=== PATIENT | male | born 1935 | race Caucasian/White ===

== ENCOUNTER 2020-11-24 10:23 | Emergency (ER) | payer MEDICARE, BC ==
[2020-11-24] MEDS ORDERED: Acetaminophen 500 MG Tab PO ONE (14:07)
[2020-11-24] MEDS ORDERED: Doxycycline 100 MG Cap PO ONE (14:07)
[2020-11-24] MEDS ORDERED: Doxycycline 100 MG Cap ONE (15:39)
[2020-11-24] MEDS ORDERED: Acetaminophen 500 MG Tab ONE (15:40)
--- NOTE | 2020-11-24 16:47 | EDM.PDOC ---
ED HPI GENERAL MEDICAL PROBLEM - General Chief Complaint: Bite:Animal, Insect Stated Complaint: TICK BITE FEELS LOUSY Time Seen by Provider: 11/24/20 13:55 Source of Information: Reports: Patient, Family. Denies: Old Records History Limitations: Reports: No Limitations - History of Present Illness INITIAL COMMENTS - FREE TEXT/NARRATIVE: 84 yo [place] presents not feeling well for the past 3 days. During that time he has also noticed R flank pain, very dark urine, and his pulled a small tick off his R posterior shoulder. The tick was attached, but not engorged. He has not had a fever. He does have an itchy red area around where the tick was attached. He is voiding often in smaller amts. Onset: Gradual Onset Date: 11/21/20 Duration: Day(s): (3+), Constant Location: Reports: Generalized Quality: Reports: Dull (R flank) Severity: Mild Improves with: Reports: None Worsens with: Reports: Movement Context: Reports: Other (See HPI). Denies: Trauma Associated Symptoms: Reports: Malaise, Rash (at site of tick attachment only). 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: Reports: Other (see below) (none) - Related Data Allergies Allergy/AdvReac Type Severity Reaction Status Date / Time adhesive tape Allergy Blisters Verified 11/24/20 14:25 iodine Allergy Edema Verified 11/24/20 14:25 Home Meds: Home Meds Aspirin [Low Dose Aspirin EC] 81 mg PO DAILY 11/24/20 [History] Citalopram [Citalopram HBr] 40 mg PO DAILY 11/24/20 [History] Folic Acid 1 mg PO DAILY 11/24/20 [History] Hydroxychloroquine Sulfate 100 mg PO DAILY 11/24/20 [History] Levothyroxine Sodium [Synthroid] 100 mcg PO ACBREAKFAST 11/24/20 [History] Methotrexate 2.5 mg PO WEEKLY 11/24/20 [History] Multivitamin [Multi-Vitamin Daily] 1 tab PO DAILY 11/24/20 [History] Rosuvastatin [Crestor] 20 mg PO BEDTIME 11/24/20 [History] ED ROS GENERAL - Review of Systems Review Of Systems: See Below Constitutional: Reports: No Symptoms, Malaise. Denies: Fever, Chills HEENT: Reports: No Symptoms Respiratory: Reports: No Symptoms Cardiovascular: Reports: No Symptoms GI/Abdominal: Reports: No Symptoms : Reports: Other (dark urine) Musculoskeletal: Reports: Other (R post/lateral chest wall pain) Skin: Reports: Erythema (at site of tick attachment) Neurological: Reports: No Symptoms ED EXAM, ANIMAL BITE - Physical Exam Exam: See Below Exam Limited By: No Limitations General Appearance: Alert, WD/WN, No Apparent Distress Eye Exam: Bilateral Eye: Normal Inspection Ears: Normal External Exam, Normal Canal, Hearing Grossly Normal Nose: Normal Inspection, No Blood Throat/Mouth: Normal Inspection, Normal Lips, Normal Oropharynx, Normal Voice, No Airway Compromise Head: Atraumatic, Normocephalic Neck: Normal Inspection Respiratory/Chest: No Respiratory Distress, Lungs Clear, Normal Breath Sounds, No Accessory Muscle Use Cardiovascular: Regular Rate, Rhythm, No Edema Back Exam: Normal Inspection, Other (R flank area tenderness on palpation(point tenderness without crepitus)) Extremities: Normal Inspection Neurological: Alert, Oriented, CN II-XII Intact, Normal Cognition, No Motor/Sensory Deficits Psychiatric: Normal Affect, Normal Mood Skin Exam: Other (redness without warmth at site of tick bite post R shoulder) Course - Vital Signs Last Recorded V/S: Last Vital Signs Temp 36.2 C 11/24/20 14:15 Pulse 70 11/24/20 14:15 Resp 16 11/24/20 14:15 BP 138/69 11/24/20 14:15 Pulse Ox 97 11/24/20 14:15 - Orders/Labs/Meds Orders: Active Orders 24 hr Category Date Time Status Bladder Scan [RC] ASDIRECTED Care 11/24/20 14:12 Ordered UA W/MICROSCOPIC [URIN] Stat Lab 11/24/20 14:07 Ordered Acetaminophen [Tylenol Extra Strength] Med 11/24/20 14:07 Once 1,000 mg PO ONETIME ONE Doxycycline [Vibramycin] Med 11/24/20 14:07 Once 200 mg PO ONETIME ONE Labs: Laboratory Tests 11/24/20 Range/Units 14:51 Urine Color Yellow (YELLOW) Urine Appearance Clear (CLEAR) Urine pH 6.0 (5.0-8.0) Ur Specific [employer] 1.020 (1.008-1.030) Urine Protein 30 H (NEGATIVE) mg/dL Urine Glucose (UA) Negative (NEGATIVE) mg/dL Urine Ketones Negative (NEGATIVE) mg/dL Urine Occult Blood Trace-intact H (NEGATIVE) Urine Nitrite Negative (NEGATIVE) Urine Bilirubin Negative (NEGATIVE) Urine Urobilinogen 1.0 (0.2-1.0) EU/dL Ur Leukocyte Esterase Negative (NEGATIVE) Urine RBC 0-5 (0-5) Urine WBC 0-5 (0-5) Ur Epithelial Cells Rare Amorphous Sediment Not seen Urine Bacteria Rare Urine Mucus Not seen - Re-Assessments/Exams Free Text/Narrative Re-Assessment/Exam: 11/24/20 15:30 Bladder scan 9 ml Departure - Departure Time of Disposition: 15:35 Disposition: Home, Self-Care 01 Condition: Good Clinical Impression: Rib pain on right side Tick bite Qualifiers: Encounter type: initial encounter Qualified Code(s): W57.XXXA - Bitten or stung by nonvenomous insect and other nonvenomous arthropods, initial encounter - Discharge Information *PRESCRIPTION DRUG MONITORING PROGRAM REVIEWED*: Not Applicable *COPY OF PRESCRIPTION DRUG MONITORING REPORT IN PATIENT VASHTI: Not Applicable Instructions: Tick Bite Information, Adult, [id number] Referrals: PCP,None [Primary Care Provider] - Forms: ED Department Discharge Additional Instructions: Take acetaminophen 1000 mg every 6 hrs as needed. Drink enough fluids so that your urine is light yellow. Recheck as needed. Sepsis Event Note (ED) - Focused Exam Vital Signs: Vital Signs Temp Pulse Resp BP Pulse Ox 11/24/20 14:15 36.2 C 70 16 138/69 97 11/24/20 13:51 36.2 C 70 16 138/69 97 - My Orders Last 24 Hours: My Active Orders 11/24/20 14:07 UA W/MICROSCOPIC [URIN] Stat Acetaminophen [Tylenol Extra Strength] 1,000 mg PO ONETIME ONE Doxycycline [Vibramycin] 200 mg PO ONETIME ONE 11/24/20 14:12 Bladder Scan [RC] ASDIRECTED - Assessment/Plan Last 24 Hours: My Active Orders 11/24/20 14:07 UA W/MICROSCOPIC [URIN] Stat Acetaminophen [Tylenol Extra Strength] 1,000 mg PO ONETIME ONE Doxycycline [Vibramycin] 200 mg PO ONETIME ONE 11/24/20 14:12 Bladder Scan [RC] ASDIRECTED
== END 2020-11-24 15:49 | disposition home or self-care (01) ==
LOC: JP.ED 10:23
DX: S40.261A Insect bite (nonvenomous) of right shoulder, initial encounter (principal); R07.81 Pleurodynia; Z91.048 Other nonmedicinal substance allergy status; Z79.82 Long term (current) use of aspirin; Z79.899 Other long term (current) drug therapy; W57.XXXA Bitten or stung by nonvenomous insect and other nonvenomous arthropods, initial encounter
CPT/HCPCS: 81001; 99283; A9270